=== PATIENT | male | born 2000 | race Caucasian/White ===

== ENCOUNTER 2020-02-05 18:28 | Outpatient (CLI) | payer BC, SELFPAY ==
--- NOTE | ~2020-02-05 | XR_ITS ---
EXAMINATION: XR foot LT min 3V EXAM DATE: 02/05/2020 18:45 INDICATION: Not appearing on left ball of foot one month. TECHNIQUE: Left foot dorsoplantar, lateral and oblique projections obtained and reviewed. There is n o prior study for comparison. 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 There are no acute fractures or disl ocations identified. There is no subcutaneous gas. The soft tissue is unremarkable. There are no radiopaque foreign bodies. IMPRESSION: Left os peroneum. Otherwise unremarkable exam. Reviewed, dictated and finalized at location A.
== END 2020-02-05 18:29 | disposition home or self-care (01) ==
LOC: CHSIMG 18:31
PROVIDERS: PCP Family Medicine; Visit Provider Family Medicine
DX: M79.672 Pain in left foot (principal)
CPT/HCPCS: 73630